=== PATIENT | female | born 1940 | race Caucasian/White ===

== ENCOUNTER → 2019-09-14 | Outpatient (CLI) | payer MEDICARE | END | disposition home or self-care (01) | LOC: CFH 11:39 | PROVIDERS: ATTEND Nurse Practitioner Family | DX: Z12.31 Encounter for screening mammogram for malignant neoplasm of breast (principal); N63.10 Unspecified lump in the right breast, unspecified quadrant; R10.30 Lower abdominal pain, unspecified; Z85.3 Personal history of malignant neoplasm of breast | CPT/HCPCS: 76700; 77063; 77067 ==

== ENCOUNTER → 2019-10-05 | Outpatient (CLI) | payer MEDICARE | END | disposition home or self-care (01) | LOC: CFH 11:51 | PROVIDERS: ATTEND Nurse Practitioner Family | DX: N63.11 Unspecified lump in the right breast, upper outer quadrant (principal) | CPT/HCPCS: 76642; 77065 ==

== ENCOUNTER 2019-11-18 09:33 | Outpatient (CLI) | payer MEDICARE ==
[2019-11-18] MEDS ORDERED: SODIUM BICARBONATE 4.2%, 5ML ONE (11:11)
[2019-11-18] MEDS ORDERED: LIDOCAINE 1%, 20ML ONE (11:11)
[2019-11-18] MEDS ORDERED: LIDOCAINE 1%-EPI 1:100K, 20ML ONE (11:11)
== END 2019-11-18 23:59 | disposition home or self-care (01) ==
LOC: CFH 09:33
PROVIDERS: ATTEND Nurse Practitioner Family
DX: N63.11 Unspecified lump in the right breast, upper outer quadrant (principal); C50.411 Malignant neoplasm of upper-outer quadrant of right female breast; Z17.0 Estrogen receptor positive status [ER+]
CPT/HCPCS: 19083; 77065; 88305; 88361; J3490; 19285

== ENCOUNTER 2019-12-06 07:10 | Day surgery (SDC) | payer MEDICARE ==
[~2019-12-06] VITALS: Ht 162.6 cm; Wt 56.2 kg
[~2019-12-06 07:10] MED LIST: BUPIVACAINE/PF-EPI 0.5% 1:200K ONE
[2019-12-06] MEDS ORDERED: VERAPAMIL PO (08:02)
[2019-12-06] MEDS ORDERED: ROSU5TAB PO (08:02)
[2019-12-06] MEDS ORDERED: LOSA1TAB22 PO (08:02)
[2019-12-06] MEDS ORDERED: LACTATED RINGERS 1,000 ML IV SCH (08:04)
[2019-12-06] MEDS ORDERED: LIDOCAINE-MPF 1%, 2ML INFIL ONE (08:30)
[2019-12-06] MEDS ORDERED: CHLORHEXIDINE 15 ML UDC MM ONE (08:30)
[2019-12-06 08:35] VITALS: BP 162/90
[2019-12-06 08:50] LABS: ALANINE AMINOTRANSFERASE 33 U/L (12-78); ALBUMIN 3.7 g/dL (3.4-5.0); ANION GAP 8 mmol/L (5-15); CALCIUM 8.9 mg/dL (8.5-10.1); CHLORIDE 108 mmol/L (98-107); CREATININE 0.94 mg/dL (0.55-1.02)
[2019-12-06 08:53] LABS: ALKALINE PHOSPHATASE 58 U/L (45-117); BILIRUBIN,TOTAL 0.5 mg/dL (0.2-1.0)
[2019-12-06] MEDS ORDERED: MIDAZOLAM 1 MG/ML, 2ML ONE (10:03)
[2019-12-06] MEDS ORDERED: FENTANYL PF 250 MCG/5ML ONE (10:03)
[2019-12-06] MEDS ORDERED: ISOSULFAN BLUE 10 MG/ML, 5ML IV ONE (10:25)
[2019-12-06] MEDS ORDERED: PROPOFOL 10 MG/ML, 20ML ONE (10:52)
[2019-12-06] MEDS ORDERED: DEXAMETHASONE 4 MG/ML, 1ML ONE (11:00)
[2019-12-06] MEDS ORDERED: ONDANSETRON 2MG/ML, 2ML ONE (11:00)
[2019-12-06] MEDS ORDERED: MEPERIDINE/PF 50 MG/ML ONE (11:49)
[2019-12-06] MEDS ORDERED: OXYcodone 5 MG/5 ML ORAL.SOL UDC ONE (11:50)
[2019-12-06] MEDS ORDERED: FENTANYL PF 100 MCG/2ML ONE (11:55)
[2019-12-06] MEDS ORDERED: hydrALAzine 20 MG/ML, 1ML ONE (11:55)
[2019-12-06] MEDS ORDERED: LABETALOL 5MG/ML, 20ML ONE (11:55)
[2019-12-06] MEDS ORDERED: OXYcodone 5 MG/5 ML ORAL.SOL UDC PO PRN (12:00)
[2019-12-06] MEDS ORDERED: hydrALAzine 20 MG/ML, 1ML IV PRN (12:00)
[2019-12-06] MEDS ORDERED: ONDANSETRON 2MG/ML, 2ML IVPush PRN (12:00)
[2019-12-06] MEDS ORDERED: MEPERIDINE/PF 25MG/0.5ML IVPush PRN (12:00)
[2019-12-06] MEDS ORDERED: HYDROmorphone 1 MG/ML, 1ML INJ IVPush PRN (12:00)
[2019-12-06] MEDS ORDERED: morphine SULFATE 10 MG/ML, 1ML IVPush PRN (12:00)
[2019-12-06] MEDS ORDERED: ALBUTEROL SULFATE 2.5 MG/3 ML NPPB PRN (12:00)
[2019-12-06] MEDS ORDERED: LABETALOL 5MG/ML, 20ML IV PRN (12:00)
[2019-12-06] MEDS ORDERED: PROMETHAZINE 25 MG/ML, 1ML IVPush PRN (12:00)
[2019-12-06] MEDS ORDERED: FENTANYL PF 100 MCG/2ML IV PRN (12:30)
== END 2019-12-06 18:44 | disposition home or self-care (01) ==
LOC: OUT 07:10
PROVIDERS: ATTEND Surgery
DX: C50.311 Malignant neoplasm of lower-inner quadrant of right female breast (principal); Z17.0 Estrogen receptor positive status [ER+]; I10 Essential (primary) hypertension; E78.00 Pure hypercholesterolemia, unspecified; Z79.82 Long term (current) use of aspirin; Z79.899 Other long term (current) drug therapy; Z87.891 Personal history of nicotine dependence; Z98.890 Other specified postprocedural states; Z82.3 Family history of stroke; Z82.49 Family history of ischemic heart disease and other diseases of the circulatory system
CPT/HCPCS: 19301; 36415; 38525; 38792; 80053; 88305; 88307; 88329; 88342; 93005; A9541; C1729; J0690; J1100; J2175; J2405; J2704; J3010; J7120; U0001; 88341; J2250